=== PATIENT | male | born 1995 | race Native Hawaiian/Other Pacific Islander ===

== ENCOUNTER 2017-11-16 08:23 | Emergency (ER) | payer OTHER ==
[2017-11-16 08:36] VITALS: RESP 18; TEMP 97.9
--- NOTE | 2017-11-16 08:56 | ED PDOC ---
Arrival/HPI - General Chief Complaint: Abnormal Skin Integrity Time Seen by Provider: 11/16/17 08:39 Historian: Patient - History of Present Illness Narrative History of Present Illness (Text): 11/16/17 08:51 22 year old male, who denies any past medical history or any known allergies, presents to the emergency department complaining of itchiness to the both hands and feet that began yesterday morning. He reports having a similar episode 2 months ago and was prescribed Atarax and steroid cream which resolved the symptoms after a few days. Patient denies using any new products or wearing any new clothes. Patient denies any pain and reports just itchiness to the specified area. Patient denies any fever, chills, chest pain, shortness of breath, nausea, vomiting, diarrhea, headache, dizziness, or any other complaints. Time/Duration: Other (yesterday morning) Symptom Onset: Sudden Symptom Course: Unchanged Activities at Onset: Light Context: Home Past Medical History - Provider Review Nursing Documentation Reviewed: Yes - Psychiatric Hx Substance Use: No Family/Social History - Physician Review Nursing Documentation Reviewed: Yes Family/Social History: No Known Family HX Smoking Status: Never Smoked Hx Alcohol Use: No Hx Substance Use: No Allergies/Home Meds Allergies/Adverse Reactions: Allergies No Known Allergies Allergy (Verified 11/16/17 08:35) Review of Systems - Review of Systems Constitutional: absent: Fatigue, Fevers, Other (Chills) Eyes: absent: Eye Pain Respiratory: absent: SOB Cardiovascular: absent: Chest Pain, DUTTON Gastrointestinal: absent: Diarrhea, Nausea, Vomiting Genitourinary Male: absent: Dysuria Musculoskeletal: absent: Back Pain Skin: Rash, Pruritis (to both hands and feet). absent: Laceration, Abscess, Ulcer, Cellulitis Neurological: absent: Headache, Dizziness, Focal Weakness Hemo/Lymphatic: absent: Easy Bleeding Physical Exam - Physical Exam Narrative Physical Exam (Text): 11/16/17 08:58 Head: Atraumatic. Normocephalic. Eyes: PERRL. EOMI. Conjunctivae are not pale. No conjunctival injection. ENT: Mucous membranes are moist and intact. Oropharynx is clear and symmetric. No oral lesions. No tongue or pharyngeal lesions or edema. Neck: Supple. Full ROM. No JVD. No lymphadenopathy. No meningeal signs. Cardiovascular: Regular rate. Regular rhythm. No murmurs, rubs, or gallops. Distal pulses are 2+ and symmetric. Pulmonary/Chest: No evidence of respiratory distress. Clear to auscultation bilaterally. No wheezing, rales or rhonchi. Abdominal: Soft and non-distended. There is no tenderness. No rebound, guarding, or rigidity. No organomegaly. Good bowel sounds. Back: No CVA tenderness. No midline tenderness. Extremities: No edema. No cyanosis. No clubbing. Full range of motion in all extremities. No calf tenderness. No joint pain. No swelling to ankle or knees or wrists or elbow. Skin: There is erythema noted to the palms and soles of hands and feet bilaterally, NOT vesicular, not painful, not streaking, no scaling or foreign bodies noted. Neurological: No meningeal signs. Motor and sensory exam intact. Psychiatric: Good eye contact. Normal interaction, affect, and behavior. Vital Signs Reviewed: Yes Vital Signs Temp Pulse Resp BP Pulse Ox 11/16/17 09:24 69 18 122/69 69 L 11/16/17 08:34 97.9 F 63 18 127/77 98 Temperature: Afebrile Blood Pressure: Normal Pulse: Regular Respiratory Rate: Normal Appearance: Positive for: Well-Appearing, Non-Toxic, Comfortable Pain Distress: None Mental Status: Positive for: Alert and Oriented X 3 Medical Decision Making ED Course and Treatment: 11/16/17 08:51 Impression: 22 year old male presents complaining of itchiness to both the hands and feet that began yesterday morning. Patient reports similar symptoms in the past. Plan: -- Benadryl, Prednisone Tab -- Reassess and disposition Progress Notes: Patient denies any new exposures. 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 No fevers. No chemical usage. No recent travel. Rash localized to palms and soles. No sore throat or fever or cough or congestion. No abdominal pain or chest pain or shortness of breath. No dizziness. No joint pain. No pain with ambulation. States itching not resolved. No wheezing noted. No vesicles or bites or blisters noted. Have stressed need for close follow-up with systems developer. Will discharge with prednisone, bendaryl, advised f/u with PMD and dermatology. 11/16/17 09:35 - Medication Orders Current Medication Orders: Discontinued Medications Diphenhydramine HCl (Benadryl) 25 mg PO STAT STA Stop: 11/16/17 08:54 Last Admin: 11/16/17 09:10 Dose: 25 mg Prednisone (Prednisone Tab) 60 mg PO STAT ONE Stop: 11/16/17 08:54 Last Admin: 11/16/17 09:09 Dose: 60 mg - Scribe Statement The provider has reviewed the documentation as recorded by the Rosaura Lim Provider Deenaibe Attestation: All medical record entries made by the Rosaura were at my direction and personally dictated by me. I have reviewed the chart and agree that the record accurately reflects my personal performance of the history, physical exam, medical decision making, and the department course for this patient. I have also personally directed, reviewed, and agree with the discharge instructions and disposition. Disposition/Present on Arrival - Present on Arrival Any Indicators Present on Arrival: No History of DVT/PE: No History of Uncontrolled Diabetes: No Urinary Catheter: No History of Decub. Ulcer: No History Surgical Site Infection Following: None - Disposition Have Diagnosis and Disposition been Completed?: Yes Diagnosis: Dermatitis Disposition: HOME/ ROUTINE Disposition Time: 09:37 Patient Plan: Discharge Condition: GOOD Discharge Instructions (ExitCare): Dermatitis Additional Instructions: Please follow-up with systems developer (skin doctor) in next 1-2 days. For ANY fevers, any pain, any spreading or worsening of redness, any shortness of breath , any chest pain or abdominal pain, any nausea or vomiting, any lip or tongue swelling, any persistent or worsening of any symptoms, get rechecked. Prescriptions: predniSONE [Prednisone] 60 mg PO DAILY #12 tab Referrals: Darin Scott MD [Staff Provider] - Follow up with primary Forms: [employer] ([place])
[2017-11-16 09:32] VITALS: O2SAT 98
[2017-11-16 10:12] VITALS: BP 119/66; PULSE 62
== END 2017-11-16 10:11 | disposition home or self-care (01) ==
LOC: ED 08:23
DX: L30.9 Dermatitis, unspecified (principal)